=== PATIENT | female | born 1945 | race Caucasian/White ===

== ENCOUNTER → 2018-01-02 09:07 | Outpatient (CLI) | payer MEDICARE, SELFPAY ==
--- NOTE | 2018-01-02 | DI.ECHO.S_ITS ---
[facility] +---------+ : : [address] : : : : [place], [place] : : : : [id number] : : : : Phone: [phone]+ Echocardiogram Report + + :Name: ARLEN ARGUELLO Study Date: 01/02/2018 Height: 68 in : :[facility] Exam Location: IS Weight: 152 lb : : Gender: Female BSA: 1.8 m2 : :: 1945 Age: 72 yrs BP: 120/80 mmHg: :Reason For Study: Dyspnea : : Performed By: Aster Page : :Referring: CHAYA CUBA : + + Interpretation Summary Patient has been called and a message left on both her home and cell phone advising her to go to the [facility] ED. The patient was in atrial fibrillation with heart rates between 87-134 bpm during the exam. The left ventricle is normal in size. The ejection fraction is estimated to be 30-35%. There is moderate to severe global hypokinesis of the left ventricle. The right ventricle is normal size. Right ventricular systolic function is moderately reduced. Both atria are severely dilated. There is moderate to severe mitral regurgitation. There is no evidence of mitral valve prolapse. There is no vegetation seen on the mitral valve. There is moderate tricuspid regurgitation. The right ventricular systolic pressure is estimated at 19 mmHg assuming a right atrial pressure of 3 mm Hg. The ascending aorta is moderately enlarged. Procedure: A two-dimensional transthoracic echocardiogram with color flow and Doppler was performed. The study quality was technically adequate. There is no prior echocardiogram noted for this patient. The patient was in atrial fibrillation with heart rates between 87-134 bpm during the exam. Left Ventricle: The left ventricle is normal in size. There is normal left ventricular wall thickness. There is no thrombus. The ejection fraction is estimated to be 30-35%. There is moderate to severe global hypokinesis of the left ventricle. Diastolic function could not be accurately assessed due to atrial fibrillation. Right Ventricle: The right ventricle is normal size. Right ventricular systolic function is moderately reduced. Atria: Both atria are severely dilated. Mitral Valve: The mitral valve leaflets appear mildly thickened, but open well. The mitral valve leaflets are slightly calcified. There is no evidence of mitral valve prolapse. There is no vegetation seen on the mitral valve. There is moderate to severe mitral regurgitation. Aortic Valve: The aortic valve is trileaflet. The aortic valve opens well. There is trace aortic regurgitation. Tricuspid Valve: The tricuspid valve is normal. There is moderate tricuspid regurgitation. The right ventricular systolic pressure is estimated at 19 mmHg assuming a right atrial pressure of 3 mm Hg. Pulmonic Valve: The pulmonic valve is not well visualized. There is trace pulmonic regurgitation. Great Vessels: The aortic root is normal size. The ascending aorta is moderately enlarged. The aortic arch could not be visualized. The pulmonary artery is not well visualized, but is probably normal size. The IVC is of normal diameter and collapses greater than 50% with a sniff. This suggests a low right atrial pressure of 3 mm Hg. Pericardium/ Pleura There is no pericardial effusion. There is no pleural effusion. MMode/2D Measurements & Calculations LVIDd: 4.8 cm LVOT diam: 1.9 cm LVIDs: 3.1 cm Ao root diam: 3.6 cm FS: 34.7 % asc Aorta Diam: 4.2 cm EPSS: 0.41 cm IVSd: 0.86 cm LVPWd: 0.78 cm LV pratt. diameter/BSA (cm/m^2): 2.6 LV sys. diameter/BSA (cm/m^2): 1.7 LA A2 area: 28.1 cm2 RA long axis: 7.0 cm LA A4 area: 30.1 cm2 RA area: 31.9 cm2 LA length (vol): 6.8 cm RA vol: 123.6 ml LA vol: 105.6 ml RA : 68.0 ml/m2 LA vol index: 58.0 ml/m2 IVC diam: 1.8 cm RVD1 (basal): 3.8 cm TAPSE: 0.69 cm Doppler Measurements & Calculations Ao V2 max: 74.5 cm/sec LVOT Max Mart: 60.5 cm/sec Ao V2 mean: 54.8 cm/sec LV V1 max P.5 mmHg Ao max P.2 mmHg LV V1 VTI: 8.4 cm Ao mean P.3 mmHg MONICA(I,D): 2.1 cm2 Ao V2 VTI: 11.6 cm MONICA(V,D): 2.4 cm2 sev ratio: 0.72 MONICA indexed to BSA (cm^2/m^2): 1.2 MV E max mart: 70.5 cm/sec TR max mart: 198.0 cm/sec Med Peak E' Mart: 5.8 cm/sec TR max P.7 mmHg E/E' med: 12.1 PA V2 max: 36.0 cm/sec Lat Peak E' Mart: 10.3 cm/sec PA V2 mean: 26.6 cm/sec E/E' lat: 6.9 PA mean P.32 mmHg E/e' average: 9.5 PA Accel Time: 0.12 sec MV P1/2t: 45.5 msec MV P1/2t max mart: 64.2 cm/sec MVA(P1/2t): 4.8 cm2 Reading Physician:TERESSA
== END ==
PROVIDERS: Family Provider Registered Nurse Women's Health Care, Ambulatory; PCP Nurse Practitioner Family; Visit Provider Nurse Practitioner Family
DX: R06.00 Dyspnea, unspecified (principal)
CPT/HCPCS: 93306

== ENCOUNTER → 2018-05-12 11:27 | Outpatient (CLI) | payer MEDICARE, SELFPAY ==
[2018-05-12 12:44] LABS: BUN Creatinine Ratio 18.2 (6-22); Blood Urea Nitrogen 20 mg/dL (7-17); Calcium 9.2 mg/dL (8.4-10.2); Carbon Dioxide 30 mmol/L (22-32); Chloride 104 mmol/L (98-107); Estimated Glomerular Filt Rate 48.7 mL/min (>60); Glucose 84 mg/dL (80-110); HEMOLYSIS < 15 (0-50); Potassium 4.3 mmol/L (3.4-5.1); Sodium 143 mmol/L (137-145)
== END ==
PROVIDERS: Family Provider Nurse Practitioner Family; PCP Nurse Practitioner Family; Visit Provider Internal Medicine Cardiovascular Disease
DX: I48.0 Paroxysmal atrial fibrillation (principal)
CPT/HCPCS: 36415; 80048

== ENCOUNTER → 2018-06-04 10:03 | Outpatient (CLI) | payer MEDICARE, SELFPAY ==
--- NOTE | 2018-06-04 | DI.MG.S_ITS ---
BILATERAL DIGITAL SCREENING MAMMOGRAM 3D/2D WITH CAD WITH AUGMENTATION: 06/04/2018 CLINICAL: Routine screening. Comparison is made to exams dated: 06/06/2015 mammogram, 04/08/2014 mammogram, and 04/07/2013 mammogram - [facility]. The tissue of both breasts is heterogeneously dense. This may lower the sensitivity of mammography. Current study was also evaluated with a Computer Aided Detection (CAD) system. Bilateral breast implants are stable. No significant masses, calcifications, or other findings are seen in either breast. There has been no significant interval change. IMPRESSION: NEGATIVE There is no mammographic evidence of malignancy. A 1 year screening mammogram is recommended. This exam was interpreted at Station ID: [id number]. NOTE: For mammograms, a report in lay terms will be sent to the patient. Approximately 15% of breast malignancies will not be visualized mammographically. In the management of a palpable breast mass, a negative mammogram must not discourage biopsy of a clinically suspicious lesion. Electronically Signed By: Ry frazier/walter:06/04/2018 11:39:24 letter sent: Normal Exam ACR BI-RADS Category 1: Negative 3341F
== END ==
PROVIDERS: PCP Nurse Practitioner Family; Visit Provider Nurse Practitioner Family
DX: Z12.31 Encounter for screening mammogram for malignant neoplasm of breast (principal)
CPT/HCPCS: 77063; 77067

== ENCOUNTER → 2020-07-01 11:48 | Outpatient (CLI) | payer MEDICARE, SELFPAY ==
--- NOTE | 2020-07-01 | DI.MG.S_ITS ---
BILATERAL DIGITAL SCREENING MAMMOGRAM 3D/2D WITH CAD WITH AUGMENTATION: 07/01/2020 CLINICAL: Routine screening. Comparison is made to exams dated: 06/04/2018 mammogram, 06/06/2015 mammogram, and 04/08/2014 mammogram - [facility]. The tissue of both breasts is heterogeneously dense. This may lower the sensitivity of mammography. Current study was also evaluated with a Computer Aided Detection (CAD) system. Bilateral breast implants are intact. There is a focal asymmetry in the right breast at 7 o'clock middle depth. No other significant masses, calcifications, or other findings are seen in either breast. IMPRESSION: INCOMPLETE: NEEDS ADDITIONAL IMAGING EVALUATION The focal asymmetry in the right breast is indeterminate. Additional views with possible ultrasound are recommended. This exam was interpreted at Station ID: [id number]. NOTE: For mammograms, a report in lay terms will be sent to the patient. Approximately 15% of breast malignancies will not be visualized mammographically. In the management of a palpable breast mass, a negative mammogram must not discourage biopsy of a clinically suspicious lesion. Electronically Signed By: Liv molina/walter:07/01/2020 13:34:36 letter sent: Additional Imaging Needed ACR BI-RADS Category 0: Incomplete 3340F
== END ==
PROVIDERS: PCP Nurse Practitioner Family; Referring Provider Nurse Practitioner Family; Visit Provider Nurse Practitioner Family
DX: Z12.31 Encounter for screening mammogram for malignant neoplasm of breast (principal)
CPT/HCPCS: 77063; 77067

== ENCOUNTER → 2020-07-04 13:47 | Outpatient (CLI) | payer MEDICARE, SELFPAY ==
[2020-07-04 15:39] LABS: Alanine Aminotransferase 14 IU/L (<35); Albumin 4.2 g/dL (3.5-5.0); Albumin Globulin Ratio 1.4 (1.0-2.8); Alkaline Phosphatase 79 U/L (38-126); Aspartate Aminotransferase 27 IU/L (14-36); BUN Creatinine Ratio 20.2 (6-22); Bilirubin Total 0.6 mg/dL (0.2-1.3); Blood Urea Nitrogen 19 mg/dL (7-17); Calcium 9.4 mg/dL (8.4-10.2); Carbon Dioxide 29 mmol/L (22-32); Chloride 105 mmol/L (98-107); Cholesterol 194 mg/dL (140-199); Estimated Glomerular Filt Rate 58.1 mL/min (>60); Globulin 3.1 g/dL (1.7-4.1); Glucose 97 mg/dL (80-110); HDL Cholesterol 78 mg/dL (40-60); HEMOLYSIS < 15 (0-50); LDL Cholesterol Calculated 87 mg/dL (<100); Potassium 4.5 mmol/L (3.4-5.1); Sodium 137 mmol/L (137-145); Total Protein 7.3 g/dL (6.3-8.2); Triglycerides 143 mg/dL (35-150)
== END ==
PROVIDERS: PCP Internal Medicine Cardiovascular Disease; Referring Provider Internal Medicine Cardiovascular Disease; Visit Provider Internal Medicine Cardiovascular Disease
DX: I48.0 Paroxysmal atrial fibrillation (principal); I51.9 Heart disease, unspecified; I34.0 Nonrheumatic mitral (valve) insufficiency
CPT/HCPCS: 36415; 80053; 80061

== ENCOUNTER → 2021-06-30 10:54 | Outpatient (CLI) | payer MEDICARE, SELFPAY | PROVIDERS: PCP Family Medicine; Referring Provider Family Medicine; Visit Provider Family Medicine | DX: Z90.722 Acquired absence of ovaries, bilateral (principal); M85.852 Other specified disorders of bone density and structure, left thigh; Z78.0 Asymptomatic menopausal state | CPT/HCPCS: 77080 ==

== ENCOUNTER → 2021-07-01 09:03 | Outpatient (CLI) | payer MEDICARE, SELFPAY ==
[2021-07-01 10:12] LABS: Alanine Aminotransferase 18 IU/L (<35); Albumin 4.2 g/dL (3.5-5.0); Albumin Globulin Ratio 1.4 (1.0-2.8); Alkaline Phosphatase 72 U/L (38-126); Aspartate Aminotransferase 27 IU/L (14-36); Bilirubin Total 0.7 mg/dL (0.2-1.3); Blood Urea Nitrogen 21 mg/dL (7-17); Calcium 9.4 mg/dL (8.4-10.2); Carbon Dioxide 30 mmol/L (22-32); Chloride 104 mmol/L (98-107); Cholesterol 179 mg/dL (140-199); Glucose 109 mg/dL (80-110); HDL Cholesterol 66 mg/dL (40-60); HEMOLYSIS < 15 (0-50); LDL Cholesterol Calculated 100 mg/dL (<100); Potassium 4.8 mmol/L (3.4-5.1); Sodium 140 mmol/L (137-145); Total Protein 7.2 g/dL (6.3-8.2); Triglycerides 64 mg/dL (35-150)
== END ==
PROVIDERS: PCP Family Medicine; Referring Provider Internal Medicine Cardiovascular Disease; Visit Provider Internal Medicine Cardiovascular Disease
DX: I51.9 Heart disease, unspecified (principal); I48.0 Paroxysmal atrial fibrillation; I34.0 Nonrheumatic mitral (valve) insufficiency; Z79.01 Long term (current) use of anticoagulants
CPT/HCPCS: 36415; 80053; 80061

== ENCOUNTER → 2022-07-20 12:47 | Outpatient (CLI) | payer MEDICARE, SELFPAY ==
--- NOTE | 2022-07-20 | DI.MG.S_ITS ---
BILATERAL DIGITAL SCREENING MAMMOGRAM 3D/2D WITH CAD WITH AUGMENTATION: 07/20/2022 CLINICAL: Routine screening. Comparison is made to exams dated: 07/01/2020 mammogram, 06/04/2018 mammogram, and 06/06/2015 mammogram - [facility]. Both breasts are heterogeneously dense, which may obscure small masses (category c / 51-75% glandular tissue). Current study was also evaluated with a Computer Aided Detection (CAD) system. Bilateral breast implants are stable and intact. No significant masses, calcifications, or other findings are seen in either breast. There has been no significant interval change. IMPRESSION: NEGATIVE There is no mammographic evidence of malignancy. A 1 year screening mammogram is recommended. Based on the Tyrer Cuzick model (a risk assessment model) the patient's lifetime risk is 3.1% and her 10 year risk is 0.0%. According to the ACR, ACS, and NCCN guidelines, an annual breast MRI exam along with mammogram is recommended if the patient's lifetime risk is 20% or greater. This exam was interpreted at Station ID: [id number]. NOTE: For mammograms, a report in lay terms will be sent to the patient. Approximately 15% of breast malignancies will not be visualized mammographically. In the management of a palpable breast mass, a negative mammogram must not discourage biopsy of a clinically suspicious lesion. Electronically Signed By: David dickerson/walter:07/25/2022 13:31:18 letter sent: Normal Exam ACR BI-RADS Category 1: Negative 3341F
== END ==
PROVIDERS: PCP Family Medicine; Referring Provider Family Medicine; Visit Provider Family Medicine
DX: Z12.31 Encounter for screening mammogram for malignant neoplasm of breast (principal)
CPT/HCPCS: 77063; 77067

== ENCOUNTER → 2022-07-25 13:28 | Outpatient (CLI) | payer MEDICARE, SELFPAY ==
--- NOTE | 2022-07-25 | DI.RAD.S_ITS ---
PROCEDURE: XR SHOULDER LT MIN 2V INDICATIONS: LEFT SHOULDER PAIN TECHNIQUE: 3 views of the shoulder were acquired. COMPARISON: None. FINDINGS: Bones: No fractures or dislocations. No suspicious bony lesions. Moderate degenerative joint disease in acromioclavicular and glenohumeral joint. Degenerative changes are noted in the lower cervical spine. Visualized ribs appear intact. Soft tissues: No suspicious soft tissue calcifications. IMPRESSION: Moderate degenerative joint disease. Dictated by: Cady Atkinson M.D. on 07/25/2022 at 17:26 Approved by: Cady Atkinson M.D. on 07/25/2022 at 17:27
== END ==
PROVIDERS: PCP Family Medicine; Referring Provider Family Medicine; Visit Provider Family Medicine
DX: M19.012 Primary osteoarthritis, left shoulder (principal); M25.512 Pain in left shoulder
CPT/HCPCS: 73030

== ENCOUNTER 2024-08-24 14:07 | Emergency (ER) | payer MEDICARE, SELFPAY ==
[2024-08-24] VITALS (7 sets, daily range): BP systolic 141–188; BP diastolic 73–102; PULSE 72–80; RESP 15–23; TEMP 36.3; O2SAT 97–99; BMI 23.6
--- NOTE | 2024-08-24 14:21 | DI.RAD.S_ITS ---
PROCEDURE: XR CHEST 1V INDICATIONS: chest pain TECHNIQUE: One view of the chest was acquired. COMPARISON: None. FINDINGS: Surgical changes and devices: None. Lungs and pleura: Lungs are clear. No pleural effusions or pneumothorax. Mediastinum: Mediastinal contours appear normal. Heart size is prominent. Bones and chest wall: No suspicious bony lesions. Overlying soft tissues appear unremarkable. IMPRESSION: No acute pulmonary process. Dictated by: Leilani Aldana M.D. on 08/24/2024 at 14:57 Approved by: Leilani Aldana M.D. on 08/24/2024 at 14:57
--- NOTE | 2024-08-24 14:21 | EKG_ITS ---
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
[2024-08-24 14:34] LABS: Add Manual Diff / Slide Review NO; Basophils Absolute Auto 0 /uL (0-100); Basophils Percent Auto 0.3 % (0-2); Eosinophils Absolute Auto 100 /uL (0-450); Eosinophils Percent Auto 1.3 % (2-4); Hemoglobin 13.9 g/dL (12.0-16.0); Lymphocytes Absolute Auto 700 /uL (1100-4500); Lymphocytes Percent Auto 14.1 % (25-40); Mean Corpuscular HGB Conc 33.8 % (30-36); Mean Corpuscular Hemoglobin 32.3 PG (26-34); Mean Corpuscular Volume 95.7 fL (80-100); Monocytes Absolute Auto 300 /uL (0-900); Monocytes Percent Auto 6.4 % (3-14); Neutrophils Absolute Auto 4100 /uL (1500-7000); Neutrophils Percent Auto 77.9 % (50-75); Platelet Count 200 X10^3/uL (150-400); Red Blood Cell Count 4.28 X10^6/uL (4.0-5.2); Red Cell Distribution Width 13.7 % (11.6-14.8); White Blood Cell Count 5.3 X10^3/uL (4.5-11.0)
[2024-08-24 14:44] LABS: INR 1.1 (0.9-1.3); Prothrombin Time 12.2 SECONDS (9.4-12.5)
[2024-08-24 14:46] LABS: PTT Partial Thromboplastin Tim 34 SECONDS (25.1-36.5)
[2024-08-24 14:49] LABS: Alanine Aminotransferase 20 IU/L (<35); Albumin 4.5 g/dL (3.5-5.0); Albumin Globulin Ratio 1.5 (1.0-2.8); Alkaline Phosphatase 91 U/L (38-126); Aspartate Aminotransferase 29 IU/L (14-36); Bilirubin Total 0.6 mg/dL (0.2-1.3); Blood Urea Nitrogen 19 mg/dL (7-17); Calcium 9.1 mg/dL (8.4-10.2); Carbon Dioxide 25 mmol/L (22-32); Chloride 104 mmol/L (98-107); Creatine Kinase 107 U/L (30-135); Estimated Glomerular Filt Rate 50 mL/min (>60); Glucose 97 mg/dL (80-110); HEMOLYSIS < 15 (0-50); Lipase 95 U/L (23-300); Sodium 136 mmol/L (137-145); Total Protein 7.5 g/dL (6.3-8.2)
[2024-08-24 14:53] LABS: Potassium 4.2 mmol/L (3.4-5.1)
--- NOTE | 2024-08-24 14:53 | PC.NURSE ---
Patient in department for chest tight[facility] lasted a couple mintues but has since resolved. patient appeared a little short of breath in triage. At this time patient reports having no sx. Hx of Afib on eliquis with ablation several years ago. Patient reports new cough that started last night, has been coughing a lot recently, no other respiratory sx
[2024-08-24 15:01] LABS: NT-proBNP (BNP-Adult 18+) 997 pg/mL (<450); Troponin I < 0.012 ng/mL (0.01-0.034)
--- NOTE | 2024-08-24 19:00 | ED.CHESTPAIN ---
HPI - Chest Pain General Chief Complaint: Chest Pain Stated Complaint: tightness in chest Time Seen by Provider: 08/24/24 16:37 Source: patient Mode of arrival: Ambulatory Related Data Allergies Allergy/AdvReac Type Severity Reaction Status Date / Time No Known Drug Allergies Allergy Verified 08/24/24 14:31 Patient History Social History Smoking Status: Unknown if ever smoked Smoking Status: Unknown if ever smoked Exam Initial Vital Signs Initial Vital Signs: Vital Signs Temperature 97.4 F L 08/24/24 14:17 Pulse Rate 79 08/24/24 14:17 Respiratory Rate 18 08/24/24 14:17 Blood Pressure 188/102 H 08/24/24 14:17 Pulse Oximetry 99 08/24/24 14:17 Oxygen Delivery Method Room Air 08/24/24 14:17 Course Orders Ordered: ED Orders 08/24/24 14:21 XR chest 1V Stat EKG-12 Lead Stat 08/24/24 14:27 Complete Blood Count AUTO DIFF Stat Comprehensive Metabolic Panel Stat Lipase Stat Magnesium Stat NT-proBNP (BNP-Adult 18+) Stat PTT Partial Thromboplastin Mark Stat Prothrombin Time INR Stat Troponin & CK Cardiac Panel Stat Discontinued Medications Aspirin (Aspirin 81 Mg Chew Tab) 324 mg PO NOW ONE Stop: 08/24/24 14:21 Last Admin: 08/24/24 14:30 Dose: Not Given Documented By: PASTOR Vital Signs Vital signs: Vital Signs - 8 hr 08/24/24 14:17 08/24/24 14:25 08/24/24 14:30 Temperature 97.4 F L Pulse Rate 79 74 73 Respiratory Rate 18 23 22 Blood Pressure 188/102 H Pulse Oximetry 99 97 98 Oxygen Delivery Method Room Air Room Air 08/24/24 14:30 08/24/24 15:00 08/24/24 15:00 Temperature Pulse Rate 72 Respiratory Rate 17 Blood Pressure 169/77 H 141/73 H Pulse Oximetry 97 Oxygen Delivery Method 08/24/24 15:30 08/24/24 15:30 08/24/24 16:00 Temperature Pulse Rate 80 77 Respiratory Rate 22 15 Blood Pressure 158/77 H Pulse Oximetry 98 Oxygen Delivery Method 08/24/24 16:00 08/24/24 16:30 08/24/24 16:30 Temperature Pulse Rate 77 Respiratory Rate 20 Blood Pressure 162/91 H 176/81 H Pulse Oximetry 99 Oxygen Delivery Method MDM - Chest Pain Lab Data 08/24/24 14:27 08/24/24 14:27 Labs: Lab Results 08/24/24 Range/Units 14:27 WBC 5.3 (4.5-11.0) X10^3/uL RBC 4.28 (4.0-5.2) X10^6/uL Hgb 13.9 (12.0-16.0) g/dL Hct 41.0 (36-46) % MCV 95.7 (80-100) fL MCH 32.3 (26-34) PG MCHC 33.8 (30-36) % RDW 13.7 (11.6-14.8) % Plt Count 200 (150-400) X10^3/uL Neut % (Auto) 77.9 H (50-75) % Lymph % (Auto) 14.1 L (25-40) % Throckmorton % (Auto) 6.4 (3-14) % Eos % (Auto) 1.3 L (2-4) % Baso % (Auto) 0.3 (0-2) % Neut # (Auto) 4100 (4319-6968) /uL Lymph # (Auto) 700 L (9608-9964) /uL Throckmorton # (Auto) 300 (0-900) /uL Eos # (Auto) 100 (0-450) /uL Baso # (Auto) 0 (0-100) /uL PT 12.2 (9.4-12.5) SECONDS INR 1.1 (0.9-1.3) APTT 34 (25.1-36.5) SECONDS Sodium 136 L (137-145) mmol/L Potassium 4.2 (3.4-5.1) mmol/L Chloride 104 (98-107) mmol/L Carbon Dioxide 25 (22-32) mmol/L BUN 19 H (7-17) mg/dL Creatinine 1.12 H (0.52-1.04) mg/dL Estimated GFR 50 L (>60) mL/min BUN/Creatinine Ratio 17.0 (6-22) Glucose 97 (80-110) mg/dL Calcium 9.1 (8.4-10.2) mg/dL Magnesium 2.0 (1.6-2.3) mg/dL Total Bilirubin 0.6 (0.2-1.3) mg/dL AST 29 (14-36) IU/L ALT 20 (<35) IU/L Alkaline Phosphatase 91 (38-126) U/L Total Creatine Kinase 107 (30-135) U/L Troponin I < 0.012 (0.01-0.034) ng/mL NT-Pro-B Natriuret Pep 997 H (<450) pg/mL Total Protein 7.5 (6.3-8.2) g/dL Albumin 4.5 (3.5-5.0) g/dL Globulin 3.0 (1.7-4.1) g/dL Albumin/Globulin Ratio 1.5 (1.0-2.8) Lipase 95 (23-300) U/L Imaging Data Chest x-ray: Radiologist's Impression: Kim Green??79??F??1945 ? Allergy/Adv: No Known Drug Allergies Close Chest X-Ray (Signed) Leilani Aldana - 08/24/24 Shoulder X-Ray (Signed) Cady Atkinson - 07/25/22 Mammogram Screening (Signed) David Darling - 07/20/22 Bone Densitometry 06/30/21 Mammogram Screening (Signed) Liv Montes - 07/01/20 Mammogram Screening (Signed) Ry Castorena - 06/04/18 Echocardiogram Ultrasound (Signed) Nereida Sidhu - 01/02/18 [place] [address] XRay Report Signed Patient: Kim Green MR#: [id number] : 1945 Acct:[id number] Age/Sex: 79 / F Date of Service: 08/24/24 Loc: ED Accession Number: [id number] Procedure: XR chest 1V Ordering Provider: More Locke D.O. PROCEDURE: XR CHEST 1V INDICATIONS: chest pain TECHNIQUE: One view of the chest was acquired. COMPARISON: None. FINDINGS: Surgical changes and devices: None. Lungs and pleura: Lungs are clear. No pleural effusions or pneumothorax. Mediastinum: Mediastinal contours appear normal. Heart size is prominent. Bones and chest wall: No suspicious bony lesions. Overlying soft tissues appear unremarkable. IMPRESSION: No acute pulmonary process. Dictated by: Leilani Aldana M.D. on 08/24/2024 at 14:57 Approved by: Leilani Aldana M.D. on 08/24/2024 at 14:57 ECG Data Attestation: I personally reviewed and interpreted this ECG as follows: Prior ECG tracings: not available for review Interpretation: EKG sinus rhythm with marked sinus arrhythmia rate 81 MN 174 QRS 86 QTC of 462. No prior for comparison. MDM Narrative Medical decision making narrative: Patient left without being seen. CBC shows elevated neutrophil percentage but otherwise normal. Coags are negative creatinine is 1.12 BUN 19 sodium is 136 she was are negative troponins less than 0.012 with a BNP of 997. EKG sinus rhythm with marked sinus arrhythmia rate 81 MN 174 QRS 86 QTC of 462. No priors. Chest x-ray shows no acute change Discharge Plan Departure Patient Disposition: Left Without Being Seen Clinical Impression: Patient left after triage
== END 2024-08-24 17:02 | disposition left against medical advice (07) ==
PROVIDERS: Emergency Provider Emergency Medicine; PCP Family Medicine
DX: R07.9 Chest pain, unspecified (principal)
CPT/HCPCS: 36415; 71045; 80053; 82550; 83690; 83735; 83880; 84484; 85025; 85610; 85730; 93005; 93010; 99283

== ENCOUNTER 2024-09-27 13:51 | Emergency (ER) | payer MEDICARE, SELFPAY ==
[2024-09-27 13:57] VITALS: BP 149/86; PULSE 75; RESP 18; TEMP 36.6; O2SAT 99; BMI 24.3
--- NOTE | 2024-09-27 16:19 | ED_ITS ---
HPI - Animal Bite <Mary Lazo PA-C - Last Filed: 09/27/24 18:55> General Chief Complaint: Animal Bite Stated Complaint: Dog bite to LT wrist Time Seen by Provider: 09/27/24 16:18 Source: patient Mode of arrival: Ambulatory History of Present Illness HPI narrative: Ms. Green is a pleasant 79-year-old female with a past medical history of paroxysmal atrial fibrillation on Eliquis who presents to the emergency department for a dog bite to the right hand/wrist. Patient was at the dog park with her dog, attempting to leave when someone else's pet dog, a large [place], jumped up on her and then proceeded to bite her right wrist causing a skin tear on the dorsal aspect of her right hand. Patient left the dog park immediately and did not get any of the dog parents information. She now has a skin tear on the dorsal right hand. She is unsure of her last tetanus shot. She is not allergic to any antibiotics. Bleeding is controlled with direct pressure. Related Data Previous Rx's Medication Instructions Recorded amoxicillin 875 mg-potassium 1 tab PO Q12H 5 days #10 tabs 09/27/24 clavulanate 125 mg tablet Allergies Allergy/AdvReac Type Severity Reaction Status Date / Time No Known Drug Allergies Allergy Verified 09/27/24 14:05 Review of Systems <Mary Lazo PA-C - Last Filed: 09/27/24 18:55> Review of Systems ROS Unobtainable: All systems reviewed & are unremarkable except as noted in HPI and below Patient History <Mary Lazo PA-C - Last Filed: 09/27/24 18:55> Social History Smoking Status: Unknown if ever smoked Smoking Status: Unknown if ever smoked Exam <Mary Lazo PA-C - Last Filed: 09/27/24 18:55> Narrative Exam Narrative: GENERAL: 79 year old patient appears stated age. Well-developed patient, in no acute distress. HEAD: Atraumatic. Normocephalic. CARDIOVASCULAR: Regular rate. Strong radial pulse bilaterally. Brisk capillary refill in all fingers. RESPIRATORY: ?Nonlabored respirations. ?Speaking in clear, full sentences? EXTREMITIES: 5 cm superficial skin tear on the dorsal aspect of the right wrist and proximal hand. Bleeding is controlled with pressure. No deep lacerations. No wounds on the palmar aspect of the wrist. Full range of motion of bilateral hands with strength and sensation intact in the distribution of the median, ulnar, radial nerves bilaterally. No pain with flexion or extension of right wrist. NEURO: AOx3. ?Clear speech. ?Moves all 4 extremities appropriately. SKIN: Right dorsal wrist skin tear described above. Initial Vital Signs Initial Vital Signs: Vital Signs Temperature 97.8 F 09/27/24 13:57 Pulse Rate 75 09/27/24 13:57 Respiratory Rate 18 09/27/24 13:57 Blood Pressure 149/86 H 09/27/24 13:57 Pulse Oximetry 99 09/27/24 13:57 Oxygen Delivery Method Room Air 09/27/24 13:57 <Henrik Hernandez MD - Last Filed: 09/27/24 21:28> Initial Vital Signs Initial Vital Signs: Vital Signs Temperature 97.8 F 09/27/24 13:57 Pulse Rate 75 09/27/24 13:57 Respiratory Rate 18 09/27/24 13:57 Blood Pressure 149/86 H 09/27/24 13:57 Pulse Oximetry 99 09/27/24 13:57 Oxygen Delivery Method Room Air 09/27/24 13:57 Course <Mary Lazo PA-C - Last Filed: 09/27/24 18:55> Orders Ordered: Discontinued Medications Amoxicillin/Clavulanate Potassium (Amoxicillin/Clav 875/125 Mg) 1 tab PO NOW ONE Stop: 09/27/24 16:31 Last Admin: 09/27/24 16:41 Dose: 1 tab Documented By: VESNA Bacitracin (Bacitracin Oint 0.9 Gm Pckt) 1 applic TOP NOW ONE Stop: 09/27/24 16:31 Last Admin: 09/27/24 16:41 Dose: 1 applic Documented By: VESNA Diphtheria/Tetanus/Acell Pertussis (Tet,Diph,Pertuss(Acell),Vac/Pf 0.5 Ml Syringe) 0.5 ml IM .ONCE ONE Stop: 09/27/24 14:11 Last Admin: 09/27/24 16:40 Dose: 0.5 ml Documented By: VESNA Lidocaine HCl (Lidocaine 2% (Glydo) 6 Ml Gel) 6 ml TOP NOW ONE Stop: 09/27/24 16:33 Last Admin: 09/27/24 16:41 Dose: 6 ml Documented By: VESNA Lidocaine/Epinephrine (Lidocaine 1% W/Epi 20ml) 5 ml SUBCUT NOW ONE Stop: 09/27/24 16:31 Last Admin: 09/27/24 16:40 Dose: 5 ml Documented By: VESNA Vital Signs Vital signs: Vital Signs - 8 hr 09/27/24 13:57 09/27/24 18:07 Temperature 97.8 F Pulse Rate 75 83 Respiratory Rate 18 16 Blood Pressure 149/86 H 131/83 Pulse Oximetry 99 97 Oxygen Delivery Method Room Air Room Air <Henrik Hernandez MD - Last Filed: 09/27/24 21:28> Orders Ordered: Discontinued Medications Amoxicillin/Clavulanate Potassium (Amoxicillin/Clav 875/125 Mg) 1 tab PO NOW ONE Stop: 09/27/24 16:31 Last Admin: 09/27/24 16:41 Dose: 1 tab Documented By: VESNA Bacitracin (Bacitracin Oint 0.9 Gm Pckt) 1 applic TOP NOW ONE Stop: 09/27/24 16:31 Last Admin: 09/27/24 16:41 Dose: 1 applic Documented By: VESNA Diphtheria/Tetanus/Acell Pertussis (Tet,Diph,Pertuss(Acell),Vac/Pf 0.5 Ml Syringe) 0.5 ml IM .ONCE ONE Stop: 09/27/24 14:11 Last Admin: 09/27/24 16:40 Dose: 0.5 ml Documented By: VESNA Lidocaine HCl (Lidocaine 2% (Glydo) 6 Ml Gel) 6 ml TOP NOW ONE Stop: 09/27/24 16:33 Last Admin: 09/27/24 16:41 Dose: 6 ml Documented By: VESNA Lidocaine/Epinephrine (Lidocaine 1% W/Epi 20ml) 5 ml SUBCUT NOW ONE Stop: 09/27/24 16:31 Last Admin: 09/27/24 16:40 Dose: 5 ml Documented By: VESNA Vital Signs Vital signs: Vital Signs - 8 hr 09/27/24 13:57 09/27/24 18:07 Temperature 97.8 F Pulse Rate 75 83 Respiratory Rate 18 16 Blood Pressure 149/86 H 131/83 Pulse Oximetry 99 97 Oxygen Delivery Method Room Air Room Air MDM - Animal Bite <Mary Lazo PA-C - Last Filed: 09/27/24 18:55> Medical Records Attestation: I reviewed the patient's medical records. [facility] Narrative Medical decision making narrative: 79-year-old female with a past medical history of paroxysmal atrial fibrillation on Eliquis who presents to the emergency department for a dog bite to the right hand/wrist. Differential diagnosis includes but is not limited to laceration, skin tear, dog bite, infection, crush wound, rabies exposure, etc. On exam the patient is in no acute distress, nontoxic appearing, vital signs appropriate. She has a superficial skin tear on the dorsal right hand/wrist that occurred from a dog at the dog park. She has no pain with range of motion of the right wrist and right hand is neurovascularly intact, she declines any bony tenderness and declines x-ray. She does not know this dog or the owners and can not confirm vaccination status of the dog. While it is assumed that this is an otherwise healthy dog since it was brought to the dog park to play, had an extensive discussion with the patient that she is a candidate for rabies post exposure prophylaxis. I attempted to call the health department for local rabies protocols however they did not answer. Discussed risks with the patient including from rabies, encouraged her to try to find the dog owners so that they can do a 10 day quarantine of their dog or inform her of vaccination status. She verbalized understanding of the risks of declining post exposure prophylaxis including from rabies. She is agreeable to proceed with updating her Tdap. Topical lidocaine was applied to the wound and then it was irrigated extensively with a 1 L of sterile water with Betadine. One Steri-Strip was used to loosely reapproximate the wound and then bacitracin and a nonadherent dressing was applied. She was given 1st dose of antibiotic prophylaxis with Augmentin. Augmentin b.i.d. x5 days was sent to her pharmacy, discussed proper daily wound care and signs and symptoms to return to the emergency department for. Recommended wound recheck with her primary care doctor this week. Patient verbalized understanding of all information, is agreeable to the plan, is stable for discharge home. Patient did fill out the dog bite form. Discharge Plan Departure Patient Disposition: Home Clinical Impression: Dog bite of right wrist Qualifiers: Encounter type: initial encounter Qualified Code(s): S61.551A - Open bite of right wrist, initial encounter Instructions: DI for Dog Bite Activity Restrictions/Additional Instructions: Dear Ms. Green, Today you were evaluated for a dog bite to your right wrist. Your tetanus shot was updated and you were given 1st dose of oral antibiotics. Your wound was cleansed extensively and 1 Steri-Strip/piece of skin tape was applied. Antibiotic ointment and a dressing is covering your wound and he should keep this in place for the next 12-24 hours. After this time, you may remove the dressing and gently clean the wound with soap and water, then pat dry. Keep the wound clean and covered with antibiotic ointment at all times.. Avoid soaking the wound in any water such as a bath, pool, or the ocean. If you develop any signs of wound infection such as increased redness, pus drainage, streaking redness, or fevers, please return to the ER immediately for evaluation. Today you declined the rabies post exposure prophylaxis. I highly recommend that you try to reach out and come in contact with the insurance agency owner of the dog that bit you. If the dog has not had its rabies vaccine, or if the dog suddenly within the next 10 days, you would need to return to the emergency department immediately for rabies post exposure prophylaxis. Please follow up with your primary care doctor within the next 2-3 days for wound recheck. (If you do not have a PCP you can call [phone]. ?to schedule an appointment with an [facility] Primary Care Provider) IF YOU DEVELOP ANY NEW OR WORSENING SYMPTOMS, RETURN TO THE ER! Please read the attached instructions, they highlight more specific treatments and interventions for you at home. Thank you for letting me participate in your care, Mary Lazo PA-C Prescriptions: New amoxicillin-pot clavulanate 875-125 mg tablet 1 tab PO Q12H 5 Days Qty: 10 0RF Referrals: Brandt Gonzalez MD [Primary Care Provider] - Stand Alone Forms: Patient Portal/API/Survey ED Sign-out <Henrik Hernandez MD - Last Filed: 09/27/24 21:28> Cosign ED Attending Stanleyature Attestation: I was immediately available in the department for consultation. This documentation has been reviewed and I agree with assessment and plan. Supervised by Henrik Hernandez MD
[2024-09-27] MEDS: LIDOCAINE 1% W/EPI 20ML 5 ML SUBCUT (16:40)
[2024-09-27] MEDS: TET,DIPH,PERTUSS(ACELL),VAC/PF 0.5 ML SYRINGE IM (16:40)
[2024-09-27] MEDS: AMOXICILLIN/CLAV 875/125 MG 1 TAB PO (16:41)
[2024-09-27] MEDS: LIDOCAINE 2% (GLYDO) 6 ML GEL TOP (16:41)
[2024-09-27] MEDS: BACITRACIN OINT 0.9 GM PCKT 1 APPLIC TOP (16:41)
[2024-09-27 18:07] VITALS: BP 131/83; PULSE 83; RESP 16; O2SAT 97
--- NOTE | 2024-09-27 18:09 | PC.NURSE ---
Bite form filled out
== END 2024-09-27 18:09 | disposition home or self-care (01) ==
PROVIDERS: Emergency Provider Physician Assistant; PCP Family Medicine
DX: S61.451A Open bite of right hand, initial encounter (principal); S61.551A Open bite of right wrist, initial encounter; I48.0 Paroxysmal atrial fibrillation; W54.0XXA Bitten by dog, initial encounter; Z79.01 Long term (current) use of anticoagulants; Z23 Encounter for immunization
CPT/HCPCS: 90471; 99283; 90715

== ENCOUNTER 2025-05-22 11:44 | Inpatient (IN) | payer MEDICARE, SELFPAY ==
[2025-05-22] VITALS (24 sets, daily range): BP systolic 112–153; BP diastolic 62–109; PULSE 79–155; RESP 18–47; TEMP 36.2–36.8; O2SAT 88–98; BMI 24.6
--- NOTE | 2025-05-22 12:00 | DI.RAD.S_ITS ---
PROCEDURE: XR CHEST 1V INDICATIONS: Shortness of breath TECHNIQUE: One view of the chest was acquired. COMPARISON: [facility], CR, XR CHEST 1V, 08/24/2024, 14:22. FINDINGS: Surgical changes and devices: None. Lungs and pleura: Right lower lobe opacity, new. Question right pleural effusion. No pneumothorax. Mediastinum: Mild cardiomegaly Bones and chest wall: No suspicious bony lesions. Overlying soft tissues appear unremarkable. IMPRESSION: Right lower lobe opacity concerning for pneumonia. Dictated by: Taiwo Xavier M.D. on 05/22/2025 at 12:08 Approved by: Taiwo Xavier M.D. on 05/22/2025 at 12:09
--- NOTE | 2025-05-22 12:13 | EKG_ITS ---
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
--- NOTE | 2025-05-22 12:26 | ED_ITS ---
HPI - SOB/Dyspnea General Chief Complaint: Shortness of Breath/Dyspnea Stated Complaint: SOB, a few days Time Seen by Provider: 05/22/25 11:55 Source: patient Mode of arrival: Ambulatory Limitations: no limitations History of Present Illness HPI Narrative: 80-year-old female history of atrial fibrillation status post ablation 4 years ago on metoprolol and Eliquis seen by Dr. Wheeler told she is back in atrial fibrillation and needs a cardiac referral and consult again placed. Patient reports dyspnea on exertion shortness of breath with ambulation more importantly she reports splitting her Eliquis dose with her once a day instead of twice a day past month. She denies fever, chills, cough, sore throat, chest pain, dizziness, lightheadedness, back pain, leg pain, or leg swelling. Other than what is stated 14 point review of system is negative. Related Data Allergies Allergy/AdvReac Type Severity Reaction Status Date / Time No Known Drug Allergies Allergy Verified 05/22/25 12:00 Review of Systems Review of Systems ROS Unobtainable: All systems reviewed & are unremarkable except as noted in HPI and below Patient History Social History Smoking Status: Never smoker Smoking Status: Never smoker Exam Narrative Exam Narrative: GENERAL: [83] year old patient appears stated age. Well-developed patient, in mild distress. HEAD: Atraumatic. Normocephalic. EYES: Pupils equal round and reactive. Extraocular motions intact. No scleral icterus. No injection or drainage. ENT: Nose without bleeding, purulent drainage. Throat without erythema, tonsillar hypertrophy or exudate. Airway patent. NECK: Trachea midline. Non tender CARDIOVASCULAR: Tachycardic irregularly irregular rate and rhythm without murmurs, gallops, or rubs. RESPIRATORY: Clear to auscultation. Breath sounds equal bilaterally. No wheezes, rales, or rhonchi. GASTROINTESTINAL: Abdomen soft, non-tender, nondistended. EXTREMITIES: No edema or joint tenderness. BACK: Nontender without deformity or crepitance. No flank tenderness. NEURO: AOx3. SKIN: No rash or erythema of visible areas Initial Vital Signs Initial Vital Signs: Vital Signs Temperature 98.2 F 05/22/25 11:55 Pulse Rate 110 H 05/22/25 11:55 Respiratory Rate 18 05/22/25 11:55 Blood Pressure 121/85 05/22/25 11:55 Pulse Oximetry 98 05/22/25 11:55 Oxygen Delivery Method Room Air 05/22/25 11:55 Course Orders Ordered: ED Orders 05/22/25 12:00 XR chest 1V Stat EKG-12 Lead Stat Measure peak expiratory flow STAT RT Consult Eval and Treat STAT 05/22/25 12:20 Complete Blood Count AUTO DIFF Stat Comprehensive Metabolic Panel Stat Lactate (Lactic Acid) Stat NT-proBNP (BNP-Adult 18+) Stat Prothrombin Time INR Stat Troponin I Stat 05/22/25 12:26 CT angio chest PE protocol Stat 05/22/25 13:46 MAG [Magnesium] Stat TSH [Thyroid Stimulating Hormone] Stat Discontinued Medications Diltiazem HCl (Diltiazem 25 Mg/5 Ml Sdv) 25 mg IV NOW ONE Stop: 05/22/25 12:30 Last Admin: 05/22/25 12:52 Dose: 25 mg Documented By: EB Vital Signs Vital signs: Vital Signs - 8 hr 05/22/25 11:55 05/22/25 12:08 05/22/25 12:09 Temperature 98.2 F Pulse Rate 110 H 155 H Respiratory Rate 18 26 H Blood Pressure 121/85 153/109 H Pulse Oximetry 98 Oxygen Delivery Method Room Air 05/22/25 12:09 05/22/25 12:15 05/22/25 12:15 Temperature Pulse Rate 151 H 155 H Respiratory Rate 30 H 26 H Blood Pressure 138/99 H Pulse Oximetry 92 Oxygen Delivery Method 05/22/25 12:30 05/22/25 12:30 05/22/25 13:00 Temperature Pulse Rate 144 H Respiratory Rate 24 Blood Pressure 133/101 H 112/76 Pulse Oximetry 92 Oxygen Delivery Method 05/22/25 13:00 Temperature Pulse Rate 124 H Respiratory Rate 27 H Blood Pressure Pulse Oximetry 89 L Oxygen Delivery Method MDM - SOB/Dyspnea Lab Data 05/22/25 12:20 05/22/25 12:20 Labs: Lab Results 05/22/25 Range/Units 12:20 WBC 5.9 (4.5-11.0) X10^3/uL RBC 4.40 (4.0-5.2) X10^6/uL Hgb 14.2 (12.0-16.0) g/dL Hct 42.6 (36-46) % MCV 96.8 (80-100) fL MCH 32.3 (26-34) PG MCHC 33.3 (30-36) % RDW 15.5 H (11.6-14.8) % Plt Count 200 (150-400) X10^3/uL Neut % (Auto) 68.6 (50-75) % Lymph % (Auto) 19.2 L (25-40) % [place] % (Auto) 9.4 (3-14) % Eos % (Auto) 1.9 L (2-4) % Baso % (Auto) 0.9 (0-2) % Neut # (Auto) 4000 (9757-3776) /uL Lymph # (Auto) 1100 (1749-0839) /uL [place] # (Auto) 600 (0-900) /uL Eos # (Auto) 100 (0-450) /uL Baso # (Auto) 100 (0-100) /uL PT 17.0 H (9.4-12.5) SECONDS INR 1.5 H (0.9-1.3) Sodium 139 (137-145) mmol/L Potassium 4.1 (3.4-5.1) mmol/L Chloride 107 (98-107) mmol/L Carbon Dioxide 21 L (22-32) mmol/L BUN 23 H (7-17) mg/dL Creatinine 1.08 H (0.52-1.04) mg/dL Estimated GFR 52 L (>60) mL/min BUN/Creatinine Ratio 21.3 (6-22) Glucose 107 H (70-99) mg/dL Lactate 1.3 (0.7-2.1) mmol/L Calcium 9.3 (8.4-10.2) mg/dL Total Bilirubin 1.0 (0.2-1.3) mg/dL AST 57 H (14-36) IU/L ALT 75 H (<35) IU/L Alkaline Phosphatase 83 (38-126) U/L Troponin I < 0.012 (0.01-0.034) ng/mL NT-Pro-B Natriuret Pep 90145 H (<450) pg/mL Total Protein 7.3 (6.3-8.2) g/dL Albumin 4.3 (3.5-5.0) g/dL Globulin 3.0 (1.7-4.1) g/dL Albumin/Globulin Ratio 1.4 (1.0-2.8) Imaging Data Chest x-ray: Radiologist's Impression: [address] [address] XRay Report Signed Patient: Kim Green MR#: [id number] : 1945 Acct:[id number] Age/Sex: 80 / F Date of Service: 05/22/25 Loc: ED Accession Number: [id number] Procedure: XR chest 1V Ordering Provider: Joshua Lau D.O. PROCEDURE: XR CHEST 1V INDICATIONS: Shortness of breath TECHNIQUE: One view of the chest was acquired. COMPARISON: [facility] , XR CHEST 1V, 08/24/2024, 14:22. FINDINGS: Surgical changes and devices: None. Lungs and pleura: Right lower lobe opacity, new. Question right pleural effusion. No pneumothorax. Mediastinum: Mild cardiomegaly Bones and chest wall: No suspicious bony lesions. Overlying soft tissues appear unremarkable. IMPRESSION: Right lower lobe opacity concerning for pneumonia. CT scan - chest: Radiologist's Impression: [address] [address] [address] Scan Report Signed Patient: Kim Green MR#: [id number] : 1945 Acct:[id number] Age/Sex: 80 / F Date of Service: 05/22/25 Loc: ED Accession Number: [id number] Procedure: CT angio chest PE protocol Ordering Provider: Joshua Lau D.O. PROCEDURE: CT ANGIO CHEST PE PROTOCOL INDICATIONS: chest pain /sob/elliott TECHNIQUE: After the administration of intravenous contrast, 2 mm thick sections acquired from the pulmonary apices to the posterior costophrenic angles. 3-dimensional maximum intensity projection (MIP) coronal and sagittal reformats were then acquired through the thorax. For radiation dose reduction, the following was used: automated exposure control, adjustment of mA and/or kV according to patient size. COMPARISON: None. FINDINGS: Image quality: Diagnostic. Pulmonary arteries: Pulmonary arteries are normal in size, and demonstrate no intraluminal filling defects to suggest central pulmonary embolism. Lower Neck: No enlarged lymph nodes. Thyroid: No thyroid nodules which require sonographic follow up, per consensus guidelines. Axillae: No enlarged lymph nodes. Chest Wall: Unremarkable. Bones: Unremarkable. Lungs and Pleura: Bilateral pleural effusions, moderate right, small left. Compressive atelectasis of the right lower lobe with surrounding ground-glass opacity. Slight compressive atelectasis of the left lower lobe with ground-glass opacities. Heart: Heart size is normal. No pericardial effusion. Thoracic Vessels: No aortic aneurysm. Mediastinum and [place]: Mild mediastinal lymphadenopathy. Esophagus: No wall thickening. No hiatal hernia. Upper Abdomen: Cystic changes liver otherwise the visualized upper abdomen solid organs and bowel loops appear normal. IMPRESSION: 1. No pulmonary embolus. 2. Right greater than left pleural effusions. 3. Right greater than left consolidations with adjacent ground-glass opacities suggestive of infection with aspiration and atelectasis not excluded. 4. Mediastinal lymphadenopathy. ECG Data Interpretation: Aflutter LAD PA undetermined QRS [address]-t wave change Change from 08/24/24 [facility] Narrative Medical decision making narrative: All lab work, vital signs, nurse triage note, medication list, previous ER visits, and all imaging studies reviewed. CTA showed no pulmonary embolus right greater than left pleural effusion. Right greater than left consolidation with adjacent ground-glass opacities suggestive of infection with aspiration and atelectasis not excluded. Mediastinal lymphadenopathy. WBC 5.9 hemoglobin 14.2 platelet 200 INR 1.5 sodium 139 potassium 4.1 CO2 21 BUN 23 creatinine 1.08 glucose 107 lactic acid 1.3 magnesium 2.0 AST 57 ALT 75 BNP [id number] Discharge Plan Departure Patient Disposition: Admitted As Inpatient Clinical Impression: Atrial fibrillation with rapid ventricular response Pneumonia Qualifiers: Pneumonia type: aspiration pneumonia Aspiration pneumonia type: unspecified L aterality: right Lung location: lower lobe of lung Qualified Code(s): J69.0 - Pneumonitis due to inhalation of food and vomit
[2025-05-22 12:32] LABS: Add Manual Diff / Slide Review NO; Hematocrit 42.6 % (36-46); Hemoglobin 14.2 g/dL (12.0-16.0); Lymphocytes Absolute Auto 1100 /uL (1100-4500); Mean Corpuscular HGB Conc 33.3 % (30-36); Mean Corpuscular Hemoglobin 32.3 PG (26-34); Mean Corpuscular Volume 96.8 fL (80-100); Platelet Count 200 X10^3/uL (150-400)
[2025-05-22 12:39] LABS: INR 1.5 (0.9-1.3); Prothrombin Time 17.0 SECONDS (9.4-12.5)
[2025-05-22 12:43] LABS: Alanine Aminotransferase 75 IU/L (<35); Albumin 4.3 g/dL (3.5-5.0); Albumin Globulin Ratio 1.4 (1.0-2.8); Alkaline Phosphatase 83 U/L (38-126); Blood Urea Nitrogen 23 mg/dL (7-17); Calcium 9.3 mg/dL (8.4-10.2); Carbon Dioxide 21 mmol/L (22-32); Chloride 107 mmol/L (98-107); Estimated Glomerular Filt Rate 52 mL/min (>60); Globulin 3.0 g/dL (1.7-4.1); Glucose 107 mg/dL (70-99); HEMOLYSIS < 15 (0-50); Lactate (Lactic Acid) 1.3 mmol/L (0.7-2.1); Potassium 4.1 mmol/L (3.4-5.1); Sodium 139 mmol/L (137-145); Total Protein 7.3 g/dL (6.3-8.2)
[2025-05-22 12:55] LABS: NT-proBNP (BNP-Adult 18+) 12100 pg/mL (<450); Troponin I < 0.012 ng/mL (0.01-0.034)
[2025-05-22 13:59] LABS: Magnesium 2.0 mg/dL (1.6-2.3)
[2025-05-22 14:30] LABS: Thyroid Stimulating Hormone 2.56 uIU/mL (0.47-4.68)
--- NOTE | 2025-05-22 14:40 | PC.NURSE ---
Decreased pt O2 to 1L at 1435 to trial pt at lower flow.
[2025-05-22 15:12] LABS: Troponin I < 0.012 ng/mL (0.01-0.034)
[2025-05-22 15:36] LABS: Lactate (Lactic Acid) 1.2 mmol/L (0.7-2.1)
[2025-05-22] MEDS: PIPERACILLIN/TAZO 4.5 GM in SODIUM CHLORIDE 0.9% 100 ML IV (15:47)
--- NOTE | 2025-05-22 17:25 | CM.DANOTE ---
Addendum entered by LIN Gutierrez 05/22/25 17:50: DCP Update: HAND BINDERY ASSEMBLY WORKER re-entered room, discussed plan with pt and no respite caregiving available in community. HAND BINDERY ASSEMBLY WORKER acquired pt sister name and number as an additional contact for pt. Sister, Reba Baca, ph# [phone]. (Updated in pt demographic) Pt sister able to connect with pt via phone, HAND BINDERY ASSEMBLY WORKER witnessed conversation that pt sister just landed at [facility] and is on her way back home (she lives in [facility]). She agreed to come up to the hospital and belt picker pt's spouse and have him under her care while pt is admitted. HAND BINDERY ASSEMBLY WORKER discussed this with stud master/mistress who will coordinate pt admission as usual. Genevieve Zuniga [facility] Original Note: ED HAND BINDERY ASSEMBLY WORKER DCP Assessment Note: Pt is a 80yo female, resident [facility], is admitted for atrial fibrillation with RVR. Pt lives in a house with her , Joshua, whom she is the primary caregiver of (dementia). Pt's Primary Care Provider is Dr. Bradnt Gonzalez and insurance is Medicare and [employer]. Reviewed chart and discussed with multidisciplinary team pt's medical status and initial discharge needs. Per ED Provider, pt admitted to ICU. HAND BINDERY ASSEMBLY WORKER consulted due to no caregiver for pt . HAND BINDERY ASSEMBLY WORKER met w/patient at bedside; introduced self and role. Patient was found in bed, alert and oriented, cooperative with assessment. Pt confirmed living situation, she is independent at baseline and is the primary caregiver for her . Patient is concerned that although pt does not have wandering behaviors, his dementia is advanced and is not typically able to care for himself for sustained periods of time. Pt expressed preference in taking her home to get him settled or him staying the night in the ICU with her, was able to confirm that this was not possible. Pt states she has been attempting to call family members but they are not available. Pt agreeable to possible urgent caregiver/respite care for . HAND BINDERY ASSEMBLY WORKER calls [facility], spoke with Nicol. Gave pt information and identified that there are no available resources for emergent dementia care for tonight. Plan: ICU Admission for IV antiarrhythmics, anticipating discharge home when back in sinus rhythm. Pending care for pt . CM team will follow closely for coordination of discharge plans. Genevieve Zuniga [facility] Discharge Planning/Care Management CM Discharge Assessment Start: 05/22/25 16:26 Freq: Status: Active Protocol: Document 05/22/25 16:58 MW (Rec: 05/22/25 17:24 MW [id number]) Discharge Planning Assessment Assigned Discharge LIN Vallejo Other Spatial Scientist Provider Dr. Brandt Gonzalez Insurance Medicare,Other (enter in Comment) Insurance Comment AARP DPOA/Assigned Joshua Green, Spouse Designee Name Contact Information [phone] Advance Directives? No Prior Living Apartment/Condo Arrangements Comment [place] Household Members spouse Type of Drives own vehicle transporation used prior to admit Independent with ADL Yes 's Is patient alert and Yes oriented? Caregiver for Yes Another Transportation Plans to drive herself home when cleared Arrangement Referrals Initiated Other Additional Comment Call out to [facility] for private caregiver for patient's while pt admitted. Review Status In Process Please Provide Date 05/22/25 Initial DC Assessment Was Performed Next Review Type Continued Stay Review
--- NOTE | 2025-05-22 17:34 | DI.ECHO.S_ITS ---
[place] +---------+ Hospital : : [address] : : [place] : : [id number] : : Phone: [phone] Echocardiogram Report + + :Name: ARLEN ARGUELLO Study Date: 05/23/2025 Height: 68 in : :Hospital ReadingLocation: Weight: 162 lb: : Gender: Female BSA: 1.9 m2 : :: 1945 Age: 80 yrs : :Reason For Study: AFIB WITH RVR : :Ordering Physician: ANTIONETTE, : :RENE Performed By: Rene Aldridge : :Referring: RENE ADAN : + + Interpretation Summary - The left ventricular contractility is severely compromised. Estimated ejection fraction is approximately 25 to 30%. There is moderate hypokinesis of the lateral segment with severe hypokinesis of the anterior segment. No LVH. Unable to comment on diastolic function. - The right ventricular contractility is moderately compromised. - Severe biatrial enlargement noted. The right and left ventricular cavities are of normal size. - Mild to moderate mitral regurgitation. - Mild tricuspid regurgitation with estimated pulmonary systolic artery pressures of 47 mmHg. - No obvious intracardiac shunts. - No obvious intracardiac masses nor thrombi. - No hemodynamically significant pericardial effusion. - Dilated ascending thoracic aorta without obvious dissection. - Elevated right-sided filling pressures. Conclusion: Severe left ventricular systolic dysfunction with moderate right ventricular dysfunction. Mild to moderate valvular insufficiencies noted. When compared with previous echocardiogram, there is a significant decline in the left ventricular systolic function. Procedure: A two-dimensional transthoracic echocardiogram with color flow and Doppler was performed. The study quality was technically adequate. Comparison is made with the echocardiogram of 03/01/2022. The patient was in atrial fibrillation with heart rates between 87-122 bpm during the exam. Left Ventricle: The left ventricle is normal in size. There is normal left ventricular wall thickness. There is no ventricular septal defect visualized. The ejection fraction is estimated to be 25-30%. There are regional wall motion abnormalities as specified. Diastolic function could not be accurately assessed due to atrial fibrillation. Right Ventricle: The right ventricle is normal size. Right ventricular systolic function is moderately reduced. Atria: The left atrium is severely dilated. The right atrium is severely dilated. There is no Doppler evidence for an interatrial shunt. Mitral Valve: There is mild mitral annular calcification. The mitral valve leaflets appear mildly thickened. The mitral valve leaflets are mildly calcified. There is mild to moderate mitral regurgitation. Aortic Valve: The aortic valve is trileaflet. The aortic valve is slightly calcified. The aortic valve opens well. There is trace aortic regurgitation. Tricuspid Valve: The tricuspid valve leaflets are thin and pliable. There is mild tricuspid regurgitation. Pulmonic Valve: The pulmonic valve is not well seen, but is grossly normal. There is no pulmonic valvular regurgitation. Great Vessels: The aortic root is mildly dilated. The ascending aorta is mild-moderately enlarged. The pulmonary artery is normal size. The IVC has a measurement of 15 mm. Pericardium/ Pleura There is no pericardial effusion. There is a moderate left-sided pleural effusion. MMode/2D Measurements & Calculations LVIDd: 4.0 cm LVOT diam: 1.9 cm LVIDs: 3.6 cm Ao root diam: 3.7 cm FS: 10.2 % asc Aorta Diam: 4.3 cm EPSS: 1.1 cm IVSd: 0.99 cm LVPWd: 0.85 cm LV pratt. diameter/BSA (cm/m^2): 2.2 LV sys. diameter/BSA (cm/m^2): 1.9 LA A2 area: 30.6 cm2 RA long axis: 6.4 cm LA A4 area: 30.1 cm2 RA area: 25.0 cm2 LA length (vol): 7.0 cm RA vol: 82.3 ml LA vol: 110.9 ml RA : 44.0 ml/m2 LA vol index: 59.3 ml/m2 IVC diam: 1.6 cm RVD1 (basal): 3.8 cm RVD2 (mid): 2.1 cm TAPSE: 1.5 cm Doppler Measurements & Calculations Ao V2 max: 87.4 cm/sec LVOT Max Mart: 83.9 cm/sec Ao V2 mean: 68.8 cm/sec LV V1 max P.8 mmHg Ao max P.1 mmHg LV V1 VTI: 13.6 cm Ao mean P.0 mmHg MONICA(I,D): 2.4 cm2 Ao V2 VTI: 15.7 cm MONICA(V,D): 2.7 cm2 sev ratio: 0.86 MONICA indexed to BSA (cm^2/m^2): 1.3 MV E max mart: 90.0 cm/sec TR max mart: 285.5 cm/sec MV A max mart: 23.9 cm/sec TR max P.6 mmHg MV E/A: 3.8 PA V2 max: 62.2 cm/sec Med Peak E' Mart: 6.4 cm/sec PA V2 mean: 42.8 cm/sec E/E' med: 14.1 PA mean P.82 mmHg Lat Peak E' Mart: 8.1 cm/sec PA pr(Accel): 58.4 mmHg E/E' lat: 11.1 E/e' average: 12.6 MV dec time: 0.18 sec MR ERO: 0.13 cm2 MR PISA: 1.9 cm2 SV(LVOT): 38.0 ml MR flow rate: 68.5 cm3/sec MR PISA radius: 0.54 cm Reading Physician:TERESSA
--- NOTE | 2025-05-22 17:40 | P.HP_ITS ---
History of Present Illness History of Present Illness Date Patient Seen: 05/22/25 Time Patient Seen: 17:40 Chief complaint: SOB, a few days Narrative: 80-year-old female with a past medical history of atrial fibrillation and ablation procedure. She presents to the emergency department with increasing shortness of breath. Patient states she was up in [employer]. She began to have increasing shortness of breath. She can do her normal routine activities. She will be also began to have a mild cough. This progressed over the next few days. And traveled home. Her has problems with his memory. She was then evaluated in Dr. Curtis's his office who said that she was in atrial fibrillation. Apparently she was referred back to Cardiology. But does not have an appointment for a number of weeks. Despite the visit to Dr. Curtis's his office patient has become increasing shortness short of breath. It got so bad that she called the office again yesterday. They told her to go to the emergency department she did not go to the emergency department because she was working on arrangements for her . She came today after she had reached out to some family and friends. Her shortness of breath has increased. She is also noticing her heart rate is beating fast and she says she is in atrial fibrillation. She has not had any chest pain. She has not had any knee problems with dizziness or lightheadedness. She says she has good appetite. She has not had any fevers or chills she has had an intermittent cough. She has noticed some mild lower extremity swelling no abdominal swelling. COUNT INCLUDES THE [facility] Social History household members: spouse Smoking Status: Never smoker Meds Home Medications and Allergies Home Medications ?Medication ?Instructions ?Recorded ?Confirmed ?Type apixaban 5 mg tablet (Eliquis) 5 mg PO BID 05/22/25 History metoprolol succinate 25 mg 25 mg PO DAILY 05/22/2512/11 History tablet,extended release 24 hr Allergies Allergy/AdvReac Type Severity Reaction Status Date / Time No Known Drug Allergies Allergy Verified 05/22/25 12:00 Exam Vital Signs (past 8 hours): - 05/22/25 11:55 05/22/25 12:08 05/22/25 12:09 Temperature 98.2 F Pulse Rate 110 H 155 H Respiratory Rate 18 26 H Blood Pressure 121/85 153/109 H Pulse Oximetry 98 Oxygen Delivery Method Room Air Oxygen Flow Rate 05/22/25 12:09 05/22/25 12:15 05/22/25 12:15 Temperature Pulse Rate 151 H 155 H Respiratory Rate 30 H 26 H Blood Pressure 138/99 H Pulse Oximetry 92 Oxygen Delivery Method Oxygen Flow Rate 05/22/25 12:30 05/22/25 12:30 05/22/25 13:00 Temperature Pulse Rate 144 H Respiratory Rate 24 Blood Pressure 133/101 H 112/76 Pulse Oximetry 92 Oxygen Delivery Method Oxygen Flow Rate 05/22/25 13:00 05/22/25 13:30 05/22/25 13:31 Temperature Pulse Rate 124 H 103 H Respiratory Rate 27 H 28 H Blood Pressure 144/81 H Pulse Oximetry 89 L 92 Oxygen Delivery Method Nasal Cannula Oxygen Flow Rate 2 05/22/25 13:31 05/22/25 14:00 05/22/25 14:30 Temperature Pulse Rate 106 H 118 H 105 H Respiratory Rate 27 H 27 H Blood Pressure Pulse Oximetry 92 95 Oxygen Delivery Method Nasal Cannula Oxygen Flow Rate 2 05/22/25 15:00 05/22/25 15:30 05/22/25 15:41 Temperature Pulse Rate 106 H 123 H 131 H Respiratory Rate 27 H 33 H 47 H Blood Pressure Pulse Oximetry 95 94 88 L Oxygen Delivery Method Oxygen Flow Rate 05/22/25 15:41 05/22/25 16:00 05/22/25 16:00 Temperature Pulse Rate 122 H Respiratory Rate 28 H Blood Pressure 139/108 H 147/91 H Pulse Oximetry 95 Oxygen Delivery Method Nasal Cannula Oxygen Flow Rate 1 05/22/25 16:30 05/22/25 16:30 05/22/25 17:00 Temperature Pulse Rate 125 H Respiratory Rate Blood Pressure 134/80 120/76 Pulse Oximetry 95 Oxygen Delivery Method Nasal Cannula Oxygen Flow Rate 1 05/22/25 17:00 Temperature Pulse Rate 111 H Respiratory Rate 23 Blood Pressure Pulse Oximetry 93 Oxygen Delivery Method Nasal Cannula Oxygen Flow Rate 1 Oxygen Delivery Method Nasal Cannula Oxygen Flow Rate 1 Narrative Exam Narrative: Gen.: Alert and oriented x3 no apparent distress. HEENT: NCAT PERRLA tympanic membranes are clear nares are patent oral mucosa is moist no tonsillar hypertrophy neck is supple without lymphadenopathy no thyroid enlargement. Cardio: S1-S2 regular rate and rhythm no murmurs appreciated. Respiratory: Mild increased work of breathing. Crackles at the lung bases decreased respiratory inspiratory effort Abdomen: Soft nontender no rebound or guarding no liver spleen enlargement no appreciable hernias Extremities: Full range of motion no appreciable weakness no cyanosis or edema. Neurologic: Grossly intact. Objective Labs 05/22/25 12:20 05/22/25 12:20 Labs: Laboratory Results - last 24 hr 05/22/25 05/22/25 05/22/25 12:20 14:35 15:20 WBC 5.9 RBC 4.40 Hgb 14.2 Hct 42.6 MCV 96.8 MCH 32.3 MCHC 33.3 RDW 15.5 H Plt Count 200 Neut % (Auto) 68.6 Lymph % (Auto) 19.2 L Henry % (Auto) 9.4 Eos % (Auto) 1.9 L Baso % (Auto) 0.9 Neut # (Auto) 4000 Lymph # (Auto) 1100 Henry # (Auto) 600 Eos # (Auto) 100 Baso # (Auto) 100 PT 17.0 H INR 1.5 H Sodium 139 Potassium 4.1 Chloride 107 Carbon Dioxide 21 L BUN 23 H Creatinine 1.08 H Estimated GFR 52 L BUN/Creatinine Ratio 21.3 Glucose 107 H Lactate 1.3 1.2 Calcium 9.3 Magnesium 2.0 Total Bilirubin 1.0 AST 57 H ALT 75 H Alkaline Phosphatase 83 Troponin I < 0.012 < 0.012 NT-Pro-B Natriuret Pep 27790 H Total Protein 7.3 Albumin 4.3 Globulin 3.0 Albumin/Globulin Ratio 1.4 TSH 2.56 Assessment & Plan Assessment and plan (1) Atrial fibrillation with rapid ventricular response: Status: Acute Plan Atrial fibrillation with RVR. Patient with atrial fibrillation with rapid ventricular response. Patient received a tell exam in the emergency room which improved her heart rate. But then it went back up. Patient then was started on diltiazem drips. Her current heart rate is in the mid 100s. We will admit her to the ICU. We will titrate her diltiazem to keep her heart rate below 100. She will be started on intermittent release metoprolol 25 mg 4 times a day. She will be started on Eliquis 5 mg twice a day for anticoagulation. Patient review of previous echocardiogram done in our organization 4 years ago showed she was in AFib at that time and had a reduced ejection fraction of 30%. Her BNP is certainly quite elevated. We will go ahead and repeat an echocardiogram while she is here in the hospital. CPK troponin is negative. BNP is quite elevated Acute respiratory failure. Patient with acute respiratory failure presumed due to congestive heart failure with bilateral pleural effusions. Patient had a CT scan doing in the emergency department which shows pleural effusions and possible mild consolidation. Patient does not have an elevated white blood cell count I think the pleural effusion has been present for quite some time. I am assuming her respiratory failure is due to fluid overloaded due to the her heart failure. Will diurese her with IV Lasix 40 mg start her on oral spironolactone. And see how she does from a fluid status. She is currently requiring oxygen and we will go ahead and titrate this down as we work on diuresing her. Hypertension. Patient's blood pressure is elevated. Will go ahead and place her on appropriate treatment with a beta-romel she is currently on Cardizem drips. Due to her heart failure will start her on a low-dose of ASHLEY inhibitor of lisinopril. DVT prophylaxis patient is on anticoagulation GI prophylaxis not needed Code status full code. Disposition and plan anticipate hospitalization greater than 2 midnights. Time-Based Coding :: [TOTAL MINUTES] spent with patient and on the chart (including review of chart, obtaining history, exam, reviewing outside data, placing orders, documenting exam and treatment plan, and counseling patient) on [DATE]. 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
[2025-05-22] MEDS: METOPROLOL IR 25 MG TABLET PO (18:16)
--- NOTE | 2025-05-22 18:27 | PC.ADMIT ---
[email or web address] [facility] Admission Note: Admitted from the ED via stretcher, ambulated to ICU bed with standby assistance. Dilt infusing @ 15mls/hr into right forearm IV, HR irregular 80-120, A Fib. 2L NC, patient SOB on exertion, O2 95%. A/Ox4. at bedside, patient states has dementia and that family member will be arriving soon to take home. The patient,Kim Green,80 y/o, was given written information regarding hospital policies, unit procedures and contact persons. Patient's smoking status: Never smoker. Vital Signs - 8 hr 05/22/25 11:55 05/22/25 12:08 05/22/25 12:09 Temperature 98.2 F Pulse Rate 110 H 155 H Respiratory Rate 18 26 H Blood Pressure 121/85 153/109 H Pulse Oximetry 98 Oxygen Delivery Method Room Air Oxygen Flow Rate 05/22/25 12:09 05/22/25 12:15 05/22/25 12:15 Temperature Pulse Rate 151 H 155 H Respiratory Rate 30 H 26 H Blood Pressure 138/99 H Pulse Oximetry 92 Oxygen Delivery Method Oxygen Flow Rate 05/22/25 12:30 05/22/25 12:30 05/22/25 13:00 Temperature Pulse Rate 144 H Respiratory Rate 24 Blood Pressure 133/101 H 112/76 Pulse Oximetry 92 Oxygen Delivery Method Oxygen Flow Rate 05/22/25 13:00 05/22/25 13:30 05/22/25 13:31 Temperature Pulse Rate 124 H 103 H Respiratory Rate 27 H 28 H Blood Pressure 144/81 H Pulse Oximetry 89 L 92 Oxygen Delivery Method Nasal Cannula Oxygen Flow Rate 2 05/22/25 13:31 05/22/25 14:00 05/22/25 14:30 Temperature Pulse Rate 106 H 118 H 105 H Respiratory Rate 27 H 27 H Blood Pressure Pulse Oximetry 92 95 Oxygen Delivery Method Nasal Cannula Oxygen Flow Rate 2 05/22/25 15:00 05/22/25 15:30 05/22/25 15:41 Temperature Pulse Rate 106 H 123 H 131 H Respiratory Rate 27 H 33 H 47 H Blood Pressure Pulse Oximetry 95 94 88 L Oxygen Delivery Method Oxygen Flow Rate 05/22/25 15:41 05/22/25 16:00 05/22/25 16:00 Temperature Pulse Rate 122 H Respiratory Rate 28 H Blood Pressure 139/108 H 147/91 H Pulse Oximetry 95 Oxygen Delivery Method Nasal Cannula Oxygen Flow Rate 1 05/22/25 16:26 05/22/25 16:30 05/22/25 16:30 Temperature Pulse Rate 125 H Respiratory Rate Blood Pressure 134/80 Pulse Oximetry 95 Oxygen Delivery Method Nasal Cannula Nasal Cannula Oxygen Flow Rate 1 05/22/25 17:00 05/22/25 17:00 05/22/25 17:24 Temperature Pulse Rate 111 H 103 H Respiratory Rate 23 31 H Blood Pressure 120/76 Pulse Oximetry 93 93 Oxygen Delivery Method Nasal Cannula Oxygen Flow Rate 1 05/22/25 17:24 05/22/25 17:30 05/22/25 17:30 Temperature Pulse Rate 104 H Respiratory Rate 22 Blood Pressure 125/79 141/78 H Pulse Oximetry 93 Oxygen Delivery Method Oxygen Flow Rate 2 05/22/25 18:23 Temperature 97.6 F Pulse Rate 95 H Respiratory Rate 26 H Blood Pressure 142/94 H Pulse Oximetry 91 Oxygen Delivery Method Oxygen Flow Rate
[2025-05-22] MEDS: APIXABAN 5 MG TABLET PO (20:58)
[2025-05-23] VITALS (22 sets, daily range): BP systolic 90–150; BP diastolic 61–102; PULSE 74–116; RESP 17–28; TEMP 36.2–36.6; O2SAT 88–98
[2025-05-23] MEDS: METOPROLOL IR 25 MG TABLET PO ×2 (00:12→05:22)
[2025-05-23] MEDS: APIXABAN 5 MG TABLET PO ×2 (08:13→20:12)
[2025-05-23] MEDS: SPIRONOLACTONE 25 MG TABLET PO (08:13)
[2025-05-23] MEDS: FUROSEMIDE 20 MG/2 ML VIAL 40 MG IV ×2 (08:13→15:56)
[2025-05-23] MEDS: METOPROLOL ER 50 MG TABLET PO (08:13)
[2025-05-23] MEDS: POTASSIUM CHLORIDE 20 MEQ TAB PO (08:15)
--- NOTE | 2025-05-23 08:31 | P.PN_ITS ---
Subjective Subjective Date Patient Seen: 05/23/25 Time Patient Seen: 08:31 Interval history: Patient seen this morning. Said she had an uncomfortable night. Still requiring oxygen. She would like to be more mobile on her room. Cardizem drips have been decreased. She is on oral metoprolol heart rates in the 90s to 100s. Tolerating oral diet up ambulating to the bathroom. Exam Vital Signs (past 8 hours): - 05/23/25 01:00 05/23/25 01:45 05/23/25 01:45 Temperature Pulse Rate Respiratory Rate Blood Pressure Pulse Oximetry 88 L Oxygen Delivery Method Nasal Cannula Nasal Cannula Oxygen Flow Rate 4 Fraction of Inspired Oxygen 05/23/25 01:51 05/23/25 02:03 05/23/25 02:03 Temperature Pulse Rate Respiratory Rate 24 Blood Pressure Pulse Oximetry 92 Oxygen Delivery Method Oximask Oxygen Flow Rate 8 Fraction of Inspired Oxygen 05/23/25 03:00 05/23/25 04:00 05/23/25 04:30 Temperature Pulse Rate 99 H 101 H Respiratory Rate 24 22 Blood Pressure 144/78 H 138/89 Pulse Oximetry 93 96 88 L Oxygen Delivery Method Oxygen Flow Rate 8 Fraction of Inspired Oxygen 05/23/25 04:35 05/23/25 04:35 05/23/25 04:39 Temperature Pulse Rate Respiratory Rate Blood Pressure Pulse Oximetry 95 Oxygen Delivery Method Oximask Oximask Oxygen Flow Rate 12 Fraction of Inspired Oxygen 05/23/25 04:49 05/23/25 04:58 05/23/25 05:00 Temperature Pulse Rate 104 H Respiratory Rate 28 H 24 Blood Pressure 140/96 H Pulse Oximetry 97 96 95 Oxygen Delivery Method Oximask Oxygen Flow Rate 10 12 Fraction of Inspired Oxygen 55 05/23/25 05:50 05/23/25 05:50 05/23/25 06:00 Temperature Pulse Rate 105 H Respiratory Rate 26 H 22 Blood Pressure 137/102 H Pulse Oximetry 98 97 Oxygen Delivery Method Oximask Oxygen Flow Rate 8 Fraction of Inspired Oxygen 05/23/25 07:00 05/23/25 08:00 Temperature 97.2 F L Pulse Rate 74 104 H Respiratory Rate 20 21 Blood Pressure 135/97 H 150/80 H Pulse Oximetry 97 90 L Oxygen Delivery Method Oxygen Flow Rate Fraction of Inspired Oxygen Fraction of Inspired Oxygen 55 SaO2/FiO2 Ratio 174 Oxygen Delivery Method Oximask Oxygen Flow Rate 8 Narrative Exam Narrative: Gen.: Alert and oriented x3 no apparent distress. HEENT: Pupils equal round and reactive or mucosa is moist Cardio: S1-S2 irregular rate and rhythm Respiratory: Increased work of breathing with crackles at lung bases Abdomen: Soft nontender no rebound or guarding no liver spleen enlargement no appreciable hernias Extremities: Full range of motion no appreciable weakness no cyanosis or edema. Neurologic: Grossly intact. Objective Labs 05/22/25 12:20 05/22/25 12:20 Labs: Laboratory Results - last 24 hr 05/22/25 05/22/25 05/22/25 12:20 14:35 15:20 WBC 5.9 RBC 4.40 Hgb 14.2 Hct 42.6 MCV 96.8 MCH 32.3 MCHC 33.3 RDW 15.5 H Plt Count 200 Neut % (Auto) 68.6 Lymph % (Auto) 19.2 L Davidson % (Auto) 9.4 Eos % (Auto) 1.9 L Baso % (Auto) 0.9 Neut # (Auto) 4000 Lymph # (Auto) 1100 Davidson # (Auto) 600 Eos # (Auto) 100 Baso # (Auto) 100 PT 17.0 H INR 1.5 H Sodium 139 Potassium 4.1 Chloride 107 Carbon Dioxide 21 L BUN 23 H Creatinine 1.08 H Estimated GFR 52 L BUN/Creatinine Ratio 21.3 Glucose 107 H Lactate 1.3 1.2 Calcium 9.3 Magnesium 2.0 Total Bilirubin 1.0 AST 57 H ALT 75 H Alkaline Phosphatase 83 Troponin I < 0.012 < 0.012 NT-Pro-B Natriuret Pep 24785 H Total Protein 7.3 Albumin 4.3 Globulin 3.0 Albumin/Globulin Ratio 1.4 TSH 2.56 PFSH Social History household members: spouse Smoking Status: Never smoker Assessment & Plan Assessment and plan (1) Atrial fibrillation with rapid ventricular response: Status: Acute Plan Atrial fibrillation with RVR. Transitioned to long-acting metoprolol start with 50 mg b.i.d. extended release. May increase the dose. Heart rates better off Cardizem drips. CPK troponin negative. Continue with anticoagulation with Eliquis. Echocardiogram today. In addition to her beta-romel started ASHLEY inhibitor and spironolactone. Acute respiratory failure. With bilateral pleural effusions. Assumed due to heart failure. Continue with diuresis Lasix 40 mg IV. Potassium replacement. Spironolactone. Hypertension. Patient's blood pressure is elevated. Continue adjust lisinopril and metoprolol dosing as appropriate. DVT prophylaxis patient is on anticoagulation GI prophylaxis not needed Code status full code. Disposition and plan echocardiogram today. IV Lasix. Monitoring electrolytes. Still requiring oxygen. Like her to become off oxygen before home. Anticipate another day in the hospital. Time-Based Coding :: [TOTAL MINUTES] spent with patient and on the chart (including review of chart, obtaining history, exam, reviewing outside data, placing orders, documenting exam and treatment plan, and counseling patient) on [DATE]. 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
--- NOTE | 2025-05-23 14:03 | CM.DPC ---
DCP Cont: Per MD, pt has improved and able to tolerate PO meds and ambulated to the BR and to continue with IV Lasix and Echo today and attempt to wean off 8LO2. Likely another 1-2 days and plan of home once on room air. SW to follow for any further identified discharge planning needs. LIN Dooley
[2025-05-23] MEDS: METOPROLOL ER 50 MG TABLET 100 MG PO (17:11)
[2025-05-23 17:20] LABS: Add Manual Diff / Slide Review NO; Hematocrit 42.4 % (36-46); Hemoglobin 14.3 g/dL (12.0-16.0); Lymphocytes Absolute Auto 1100 /uL (1100-4500); Mean Corpuscular HGB Conc 33.9 % (30-36); Mean Corpuscular Hemoglobin 32.4 PG (26-34); Mean Corpuscular Volume 95.8 fL (80-100); Platelet Count 214 X10^3/uL (150-400)
[2025-05-23 17:29] LABS: Alanine Aminotransferase 63 IU/L (<35); Albumin 4.2 g/dL (3.5-5.0); Albumin Globulin Ratio 1.4 (1.0-2.8); Alkaline Phosphatase 82 U/L (38-126); Blood Urea Nitrogen 24 mg/dL (7-17); Calcium 9.3 mg/dL (8.4-10.2); Carbon Dioxide 24 mmol/L (22-32); Chloride 105 mmol/L (98-107); Estimated Glomerular Filt Rate 48 mL/min (>60); Globulin 3.0 g/dL (1.7-4.1); Glucose 106 mg/dL (70-99); HEMOLYSIS < 15 (0-50); Potassium 4.6 mmol/L (3.4-5.1); Sodium 137 mmol/L (137-145); Total Protein 7.2 g/dL (6.3-8.2)
[2025-05-24] VITALS (33 sets, daily range): BP systolic 110–137; BP diastolic 73–89; PULSE 55–112; RESP 16–17; TEMP 36.4–36.6; O2SAT 92–100
--- NOTE | 2025-05-24 06:36 | PC.NURSE ---
pt A&Ox4, up independently in room, voiding in bathroom, denies pain and SOB, O2 sats >92% on RA when awake, desats to 87% when asleep, oximask applied 6L with effect, HS metoprolol held for low BP (90/61), afib 90-110s, call peralta within reach, care ongoing
[2025-05-24 06:52] LABS: Add Manual Diff / Slide Review NO; Hematocrit 41.8 % (36-46); Hemoglobin 14.1 g/dL (12.0-16.0); Lymphocytes Absolute Auto 1300 /uL (1100-4500); Mean Corpuscular HGB Conc 33.6 % (30-36); Mean Corpuscular Hemoglobin 32.2 PG (26-34); Mean Corpuscular Volume 95.6 fL (80-100); Platelet Count 193 X10^3/uL (150-400)
[2025-05-24 07:04] LABS: Alanine Aminotransferase 48 IU/L (<35); Albumin 3.8 g/dL (3.5-5.0); Albumin Globulin Ratio 1.3 (1.0-2.8); Alkaline Phosphatase 72 U/L (38-126); Blood Urea Nitrogen 26 mg/dL (7-17); Calcium 9.0 mg/dL (8.4-10.2); Carbon Dioxide 24 mmol/L (22-32); Chloride 105 mmol/L (98-107); Estimated Glomerular Filt Rate 44 mL/min (>60); Globulin 2.9 g/dL (1.7-4.1); Glucose 108 mg/dL (70-99); HEMOLYSIS < 15 (0-50); Magnesium 1.9 mg/dL (1.6-2.3); Potassium 3.8 mmol/L (3.4-5.1); Sodium 139 mmol/L (137-145); Total Protein 6.7 g/dL (6.3-8.2)
[2025-05-24] MEDS: METOPROLOL ER 50 MG TABLET 100 MG PO (08:39)
[2025-05-24] MEDS: POTASSIUM CHLORIDE 20 MEQ TAB PO (08:39)
[2025-05-24] MEDS: SPIRONOLACTONE 25 MG TABLET PO (08:40)
[2025-05-24] MEDS: APIXABAN 5 MG TABLET PO (08:40)
[2025-05-24] MEDS: FUROSEMIDE 20 MG/2 ML VIAL 40 MG IV ×2 (08:45→14:58)
--- NOTE | 2025-05-24 13:14 | CM.DPC ---
DCP Cont: Per MD, pt having more Lasix today and then possible discharge home later today vs tomorrow pending progress. Pt requesting resources and information on CG support/dementia support as she is primary caregiver to her demented spouse. SW met bedside with pt and explained role and had lengthy discussion and provided resources including [facility] Aging and Disability resources, [employer]SO[employer], Caregiver Support Groups, private CG list, CG agency list, Assisted Living/Memory Care facilities, etc... Pt very appreciative and confirms that pt has a Dtr who is flying in but does not live locally and has a direct way of speaking but attempting to help with ideas of supports for spouse. Pt confirms that spouse is pleasantly confused and no agressive behaviors or exit seeking but unable to problem solve or complete ADLs independently. Pt can still mobilize well and follows commands and is not exit seeking but unsafe to be alone by himself. Encouraged pt to begin looking into possible options for support now rather than waiting for an emergency and to look into their [employer] insurance plan to see if it would help cover the cost of placement or in-home CGs for future need. Pt states she does not feel pt is needing placement at a facility yet at this time and she has been managing him well at home himself but aware that she will need a better plan for when she cannot help pt due to unforeseen circumstances. Pt very appreciative and agreeable. Plan: SW to follow for plan of possible discharge home today vs tomorrow via family POV and any further identified discharge planning needs. LIN Dooley
--- NOTE | 2025-05-24 17:12 | P.DS_ITS ---
History of Present Illness History of Present Illness Date Patient Seen: 05/24/25 Time Patient Seen: 10:00 Chief complaint: SOB, a few days Narrative: CC: SOB/CHF Feeling much better today has not required oxygen able to ambulate able to eat go to the bathroom etc. heart rate has been generally in the double digits breathing has been good after diuresing I think she is normovolemic. We will plan on discharge home with increased metoprolol succinate dosage. Her blood pressure was a little soft last night I think we can stop the spironolactone continue with Lasix for diuretic maintenance. Already has cardiology follow-up planned outpatient. Discharge Providers Provider Date of admission: 05/22/25 15:56 Discharge Date: 05/24/25 Primary care physician: Brandt Gonzalez MD Consults: 05/22/25 16:39 Consult to [facility] [place] - Telecom Billing Analyst Routine Comment: Telecom Billing Analyst Consult needed for:: Other reason (Comment) Comment: unable to take care of himself. Discharge provider: Brandt Gonzalez MD Summary Hospital Course Discharge Diagnosis: #Atrial fibrillation with RVR # acute on chronic diastolic and systolic congestive heart failure # Acute respiratory failure with hypoxia # pulmonary edema # Hypertension Hospital Course: Pleasant patient with recent new diagnosis of atrial fibrillation presented to emergency department with several days of worsening shortness of breath found to be in acute CHF exacerbation in addition to AFib with RVR. RVR was broken with diltiazem IV she did require supplemental oxygen she was diuresed aggressively and by by day of discharge was feeling much better. We will plan on continuing outpatient referral already existing to Cardiology as well as close follow-up with PCP and possible cardiac rehab referral Status at Discharge Cognitive/behavioral status at discharge: oriented and at baseline, oriented Functional status at discharge: independent ambulation Overall status at discharge: patient is progressing back to baseline Exam Vital Signs (past 8 hours): - 05/24/25 09:31 05/24/25 09:45 05/24/25 10:00 Pulse Rate 71 94 H 65 Respiratory Rate 16 Blood Pressure Pulse Oximetry 94 97 93 Oxygen Delivery Method Room Air 05/24/25 10:00 05/24/25 10:15 05/24/25 10:30 Pulse Rate 73 94 H 67 Respiratory Rate Blood Pressure Pulse Oximetry 92 95 95 Oxygen Delivery Method 05/24/25 10:45 05/24/25 11:00 05/24/25 11:15 Pulse Rate 80 77 112 H Respiratory Rate Blood Pressure Pulse Oximetry 95 93 96 Oxygen Delivery Method 05/24/25 11:30 05/24/25 11:45 05/24/25 12:00 Pulse Rate 98 H 84 59 L Respiratory Rate Blood Pressure Pulse Oximetry 97 93 94 Oxygen Delivery Method 05/24/25 12:15 05/24/25 12:30 05/24/25 12:45 Pulse Rate 55 L 100 H 100 H Respiratory Rate Blood Pressure Pulse Oximetry 96 94 94 Oxygen Delivery Method 05/24/25 13:00 05/24/25 13:15 05/24/25 13:17 Pulse Rate 82 69 Respiratory Rate Blood Pressure 110/73 Pulse Oximetry 96 93 Oxygen Delivery Method 05/24/25 13:17 05/24/25 13:30 05/24/25 13:45 Pulse Rate 62 76 110 H Respiratory Rate Blood Pressure Pulse Oximetry 94 95 95 Oxygen Delivery Method 05/24/25 14:00 05/24/25 14:15 05/24/25 14:30 Pulse Rate 75 72 64 Respiratory Rate Blood Pressure Pulse Oximetry 94 95 94 Oxygen Delivery Method 05/24/25 14:45 05/24/25 15:00 05/24/25 15:49 Pulse Rate 75 76 66 Respiratory Rate Blood Pressure Pulse Oximetry 93 94 96 Oxygen Delivery Method 05/24/25 16:00 05/24/25 16:15 05/24/25 16:30 Pulse Rate 64 63 73 Respiratory Rate Blood Pressure Pulse Oximetry 95 94 92 Oxygen Delivery Method 05/24/25 16:45 05/24/25 17:00 Pulse Rate 90 63 Respiratory Rate Blood Pressure Pulse Oximetry 95 95 Oxygen Delivery Method Fraction of Inspired Oxygen 55 SaO2/FiO2 Ratio 174 Oxygen Delivery Method Room Air Oxygen Flow Rate 0 Narrative Exam Narrative: Sitting on edge of hospital bed Const Other: Well-developed well-nourished Resp Other: Clear to auscultation bilaterally no crackles no wheezing Cardio Other: Regular rate S1-S2 no pedal edema GI Other: Soft nontender nondistended active bowel sounds Neuro Other: Alert awake oriented x3 moving all limbs equally Objective Labs 05/24/25 06:40 05/24/25 06:40 Labs: Laboratory Results - last 24 hr 05/23/25 05/24/25 17:00 06:40 WBC 6.0 5.3 RBC 4.42 4.37 Hgb 14.3 14.1 Hct 42.4 41.8 MCV 95.8 95.6 MCH 32.4 32.2 MCHC 33.9 33.6 RDW 14.9 H 15.2 H Plt Count 214 193 Neut % (Auto) 68.5 61.2 Lymph % (Auto) 18.6 L 24.9 L [place] % (Auto) 10.5 10.4 Eos % (Auto) 1.9 L 2.0 Baso % (Auto) 0.5 1.5 Neut # (Auto) 4100 3300 Lymph # (Auto) 1100 1300 [place] # (Auto) 600 600 Eos # (Auto) 100 100 Baso # (Auto) 0 100 Sodium 137 139 Potassium 4.6 3.8 Chloride 105 105 Carbon Dioxide 24 24 BUN 24 H 26 H Creatinine 1.16 H 1.23 H Estimated GFR 48 L 44 L BUN/Creatinine Ratio 20.7 21.1 Glucose 106 H 108 H Calcium 9.3 9.0 Magnesium 1.9 Total Bilirubin 0.7 0.7 AST 40 H 32 ALT 63 H 48 H Alkaline Phosphatase 82 72 Total Protein 7.2 6.7 Albumin 4.2 3.8 Globulin 3.0 2.9 Albumin/Globulin Ratio 1.4 1.3 PFSH Social History household members: spouse Smoking Status: Never smoker Discharge Assessment & Plan Assessment and Plan Assessment: #Atrial fibrillation with RVR Required Cardizem drip to break doing well now on metoprolol succinate 100 mg we will continue this with lisinopril, stop spironolactone for now blood pressures have been too soft to continue this with beta-romel in outpatient setting.. # acute on chronic diastolic and systolic congestive heart failure # Acute respiratory failure with hypoxia # pulmonary edema Much improved status post aggressive diuresis with IV loop diuretics she is breathing well I do not hear any crackles on auscultation we will plan on discharge on 20 mg of Lasix as diuretic. Echocardiogram showed ejection fraction 25% she may benefit from cardiac rehab. We will discuss at outpatient follow-up. # Hypertension Has been stable on lisinopril 5 metoprolol 100 today. Dispo: Home to follow-up with PCP and product development assistant DVT prophylaxis patient is on anticoagulation GI prophylaxis not needed Code status full code. Discharge Plan Discharge Plan Patient Disposition: Home Health Service Discharge orders & Medications Prescriptions: New metoprolol succinate 50 mg Tablet Extended Release 24 Hr 100 mg PO DAILY Qty: 30 0RF furosemide 20 mg Tablet 20 mg PO DAILY Qty: 30 0RF Continued Eliquis 5 mg tablet 5 mg PO BID Discontinued metoprolol succinate 25 mg tablet extended release 24 hr 25 mg PO DAILY Follow up/Referrals: Brandt Gonzalez MD [Primary Care Provider, Family Practice] Visit Report/Discharge Packet Stand Alone Forms: Patient Portal/API, Stroke Signs & Symptoms Discharge Data Primary Care Provider: Brandt Gonzalez
--- NOTE | 2025-05-24 18:04 | PC.NURSE ---
Provided discharge education to pt on medications and follow up; pt stated all questions answered. No PIV or tele. Pt stated no belongings in safe or pharm. No belongings in nurse traffic observer drawer. All belongings with patient. Pt escorted via WC by this RN and daughter to main entrance to daughter's POV for safe travel home.
== END 2025-05-24 17:55 | disposition home or self-care (01) | DRG 308 ==
LOC: ED 15:52 → ICU 05-23 09:05 → AC 05-24 07:30 → ICU 05-24 07:30
PROVIDERS: Admitting Provider Family Medicine; Emergency Provider Family Medicine; PCP Family Medicine; Referring Provider Family Medicine; Visit Provider Family Medicine
DX: I48.91 Unspecified atrial fibrillation (principal); I50.43 Acute on chronic combined systolic (congestive) and diastolic (congestive) heart failure; J96.01 Acute respiratory failure with hypoxia; I11.0 Hypertensive heart disease with heart failure; Z79.01 Long term (current) use of anticoagulants
CPT/HCPCS: 36415; 71045; 71275; 80053; 83605; 83735; 83880; 84443; 84484; 85025; 85610; 87040; 93005; 93306; 94762; 96365; 96367; 96368; 99223; 99233; 99284; 99285; J1938; J1956; J2543; J7050; Q9967